=== PATIENT | female | born 1960 | race Caucasian/White ===

== ENCOUNTER → 2018-05-20 09:35 | Outpatient (CLI) | payer OTHER, SELFPAY ==
--- NOTE | 2018-05-20 09:43 | DI.RAD.S_ITS ---
PROCEDURE: XR HAND RT MIN 3V INDICATIONS: fall TECHNIQUE: 3 views of the hand(s) acquired. COMPARISON: None. FINDINGS: Bones: No fractures or dislocations. Carpal bones are normally aligned. No suspicious bony lesions. Soft tissues: No suspicious soft tissue calcifications. IMPRESSION: No displaced fracture seen. If there is continued pain, followup exam or additional imaging such as MRI or CT could be performed for further assessment. Dictated by: Reynold SUAREZ Interpreted: Keiko Zuniga MD on 05/20/2018 at 10:04 Approved by: Keiko Zuniga M.D. on 05/20/2018 at 14:40
== END ==
PROVIDERS: Visit Provider Physician Assistant
DX: M79.644 Pain in right finger(s) (principal); R22.31 Localized swelling, mass and lump, right upper limb
CPT/HCPCS: 73130

== ENCOUNTER → 2018-12-31 08:18 | Outpatient (CLI) | payer OTHER, SELFPAY | PROVIDERS: Visit Provider Physician Assistant | DX: R68.89 Other general symptoms and signs (principal) | CPT/HCPCS: 87400 ==

== ENCOUNTER → 2020-01-15 12:57 | Outpatient (CLI) | payer OTHER, SELFPAY ==
--- NOTE | 2020-01-15 | DI.MRI.S_ITS ---
PROCEDURE: MR KNEE RT WO CON INDICATIONS: UNSPECIFIED INTERNAL DERANGEMENT OF RIGHT KNEE TECHNIQUE: Noncontrast sagittal PD fast spin echo and T2 fast spin echo with fat saturation, sagittal 3-D FLASH with fat saturation; coronal T1 spin echo and PD fast spin echo with fat saturation, and axial PD fast spin echo with fat saturation through the knee. COMPARISON: [facility] Outside Film, RG, KNEE 3VW (RT), 12/04/2019, 19:35. FINDINGS: Image quality: Excellent. Menisci: There is medial extrusion of the medial meniscus. Amorphous high signal intensity within the medial meniscal body is present demonstrating inferior articular surface extension, indicating degenerative tearing. Radial tearing of the posterior horn medial meniscus at the meniscal root ligament insertion site is present. Amorphous high signal intensity within the lateral meniscal body is present, without articular surface extension. Cruciate ligaments: The anterior and posterior cruciate ligaments appear intact. Medial structures: The medial collateral ligament appears intact. Mild T2 signal elevation surrounds the medial collateral ligament. Visualized portions of the pes anserinus tendons appear normal. No abnormal bursal fluid. Lateral structures: The lateral collateral ligament, long and short heads of the biceps femoris tendon appear intact. The popliteus tendon appears normal. Iliotibial band appears normal. Anterior structures: The quadriceps and patellar tendons appear intact. Patellar alignment is normal. No femoral trochlear dysplasia or ventral trochlear prominence. No edema in the infrapatellar fat pad. Bones and cartilage: There is moderate ill-defined T2 signal elevation within the mid and posterior weight-bearing aspects of the medial femoral condyle and medial tibial plateau. Mild tricompartmental periarticular osteophyte formation. The cartilage of the medial and lateral femorotibial compartments, as well as the patellofemoral compartment, appears normal in thickness. Joint space: There is a moderate knee joint effusion and a small Mott's cyst. Normal appearing synovial plicae are incidentally noted. IMPRESSION: 1. Medial meniscal tearing. 2. MCL strain. 3. Knee joint effusion and Mott's cyst. 4. Contusion within the medial femoral condyle and medial tibial plateau. Dictated by: Maki Santiago M.D. on 01/15/2020 at 16:14 Approved by: Maki Santiago M.D. on 01/15/2020 at 16:17
== END ==
PROVIDERS: Referring Provider Orthopaedic Surgery Adult Reconstructive Orthopaedic Surgery; Visit Provider Orthopaedic Surgery Adult Reconstructive Orthopaedic Surgery
DX: S83.241A Other tear of medial meniscus, current injury, right knee, initial encounter (principal); S83.411A Sprain of medial collateral ligament of right knee, initial encounter; S80.01XA Contusion of right knee, initial encounter; M25.461 Effusion, right knee; M71.21 Synovial cyst of popliteal space [Baker], right knee
CPT/HCPCS: 73721

== ENCOUNTER → 2020-12-29 10:37 | Outpatient (CLI) | payer OTHER, SELFPAY ==
--- NOTE | 2020-12-29 | DI.US.S_ITS ---
PROCEDURE: US SOFT TISSUE HEAD AND NECK INDICATIONS: LEFT SUPRACLAVICULAR LUMP TECHNIQUE: Real-time scanning was performed of the neck region of interest, with image documentation. COMPARISON: None. FINDINGS: There are 2 morphologically normal appearing left supraclavicular lymph nodes present, largest measuring 7 mm in maximal short axis. IMPRESSION: Normal appearing prominent left supraclavicular lymph nodes, largest measuring 7 mm. Dictated by: Reynold Wagoner [facility] Interpreted: Vincent Greenwood MD on 12/29/2020 at 13:45 Approved by: Vincent Greenwood M.D. on 12/29/2020 at 16:10
== END ==
PROVIDERS: Referring Provider Nurse Practitioner Family; Visit Provider Nurse Practitioner Family
DX: R22.2 Localized swelling, mass and lump, trunk (principal)
CPT/HCPCS: 76536

== ENCOUNTER → 2021-01-29 08:06 | Outpatient (CLI) | payer OTHER, SELFPAY ==
--- NOTE | 2021-01-29 | DI.MG.S_ITS ---
BILATERAL DIGITAL SCREENING MAMMOGRAM 3D/2D WITH CAD: 01/29/2021 CLINICAL: Routine screening. Baseline exam. No prior exams were available for comparison. There are scattered fibroglandular elements in both breasts. Current study was also evaluated with a Computer Aided Detection (CAD) system. There is a 1 cm oval high density mass with punctate calcifications in the right breast at 10 o'clock middle depth. No other significant masses, calcifications, or other findings are seen in either breast. IMPRESSION: INCOMPLETE: NEEDS ADDITIONAL IMAGING EVALUATION The 1 cm oval high density mass in the right breast is indeterminate. A diagnostic mammogram and ultrasound is recommended. This exam was interpreted at Station ID: [id number]. NOTE: For mammograms, a report in lay terms will be sent to the patient. Approximately 15% of breast malignancies will not be visualized mammographically. In the management of a palpable breast mass, a negative mammogram must not discourage biopsy of a clinically suspicious lesion. Electronically Signed By: Lisa kapoor/angel:01/31/2021 09:06:34 letter sent: Additional Imaging Needed ACR BI-RADS Category 0: Incomplete [id number]
== END ==
PROVIDERS: PCP Nurse Practitioner Family; Referring Provider Nurse Practitioner Family; Visit Provider Nurse Practitioner Family
DX: Z12.31 Encounter for screening mammogram for malignant neoplasm of breast (principal)
CPT/HCPCS: 77063; 77067

== ENCOUNTER → 2021-02-14 09:25 | Outpatient (CLI) | payer OTHER, SELFPAY ==
--- NOTE | 2021-02-14 09:26 | DI.MG.S_ITS ---
UNILATERAL RIGHT DIGITAL DIAGNOSTIC MAMMOGRAM 3D/2D WITH ADDITIONAL VIEWS: 02/14/2021 CLINICAL: Additional evaluation requested from prior study. Comparison is made to exam dated: 01/29/2021 [facility]. There are scattered fibroglandular elements in right breast. There is an oval mass with a circumscribed margin and round calcifications in the right breast at 9 o'clock middle depth. This is confirmed with additional views. No other significant masses or calcifications are seen in the breast. IMPRESSION: INCOMPLETE: NEEDS ADDITIONAL IMAGING EVALUATION The oval mass in the right breast most likely is a cyst or a fibroadenoma but remains indeterminate. An ultrasound is recommended. This was performed immediately following this exam. This exam was interpreted at Station ID: [id number]. NOTE: For mammograms, a report in lay terms will be sent to the patient. Approximately 15% of breast malignancies will not be visualized mammographically. In the management of a palpable breast mass, a negative mammogram must not discourage biopsy of a clinically suspicious lesion. Electronically Signed By: Lisa kapoor/:02/14/2021 10:09:21 ACR BI-RADS Category 0: Incomplete [id number]
--- NOTE | 2021-02-14 09:27 | DI.US.S_ITS ---
LIMITED ULTRASOUND OF RIGHT BREAST: 02/14/2021 CLINICAL: Patient returns today to evaluate a focal asymmetry in the right breast. Comparison is made to exams dated: 02/14/2021 mammogram and 01/29/2021 mammogram - [facility]. Color flow and real-time ultrasound of the right breast were performed. Ahmadi scale images of the real-time examination were reviewed. There is a 1.2 cm x 1.1 cm x 0.6 cm oval mass with an indistinct and circumscribed margin in the right breast at 8 o'clock middle depth 5 cm from the nipple. This oval mass is of mixed echogenicity with an abrupt boundary. This correlates with mammography findings. Color flow imaging demonstrates that there is increased vascularity. No axillary adenopathy IMPRESSION: SUSPICIOUS OF MALIGNANCY The 1.2 cm x 1.1 cm x 0.6 cm oval mass in the right breast most likely is a fibroadenoma and is at a low suspicion for malignancy. Nonetheless, an ultrasound guided biopsy is recommended for confirmation because not all features are classic for a totally benign process. Findings and recommendations were discussed with the patient by the technologist and by Dr. Gordon at time of exam. This exam was interpreted at Station ID: [id number]. Electronically Signed By: Lisa kapoor/:02/14/2021 11:24:40 letter sent: Biopsy Required Ultrasound BI-RADS: 4a Low suspicion for malignancy
== END ==
PROVIDERS: PCP Nurse Practitioner Family; Referring Provider Nurse Practitioner Family; Visit Provider Nurse Practitioner Family
DX: R92.8 Other abnormal and inconclusive findings on diagnostic imaging of breast (principal); N63.13 Unspecified lump in the right breast, lower outer quadrant
CPT/HCPCS: 76642; 77065; G0279

== ENCOUNTER → 2021-03-04 13:07 | Outpatient (CLI) | payer OTHER, SELFPAY ==
--- NOTE | 2021-03-04 | PATH_ITS ---
[facility] Accession Number: [id number] . 01 Material submitted: . breast - R BREAST 8:30 5CMFN . 02 Diagnosis: Right Breast at 8:30, 5 cm from Nipple, Needle Core Biopsy: Benign breast parenchyma with fibroadenomatous and fibrocystic features consisting of focal cystic dilatation of terminal ductules, usual ductal hyperplasia, adenosis, and patchy stromal fibrosis. Negative for atypia or malignancy. V 03/07/2021 1230 Local . 02 Electronically signed: . Tricia Shah MD, Pathologist NPI- [id number] . 01 Gross description: . The specimen is received in formalin, labeled right breast 8:30, 5 cm from nipple, and consists of multiple dooley-yellow fragments of fibroadipose tissue measuring 1.5 x 1.0 x 0.4 cm in aggregate. The specimen is entirely submitted in cassette A1. ([id number]) /[facility] 03/05/2021 1437 Local . 02 Pathologist provided ICD-10: R92.8 . 02 CPT . 611324 Performed at: 01 [facility] [address] [place] [address], [place], [place] [id number] MD Gera Mcfarlane MD Phone: [phone] Performed at: 02 [facility] [address] [place], [place] [id number] MD Sheree Elias MD Phone: [phone]
--- NOTE | 2021-03-04 | DI.MG.S_ITS ---
UNILATERAL RIGHT DIGITAL DIAGNOSTIC MAMMOGRAM POST-NEEDLE BIOPSY: 03/04/2021 CLINICAL: Right breast mass. Comparison is made to exams dated: 02/14/2021 mammogram and 01/29/2021 mammogram - [facility]. There are scattered fibroglandular elements in right breast. Biopsy marker is at site of the lesion. IMPRESSION: POST PROCEDURE MAMMOGRAM FOR MARKER PLACEMENT Biopsy marker was deployed at or just within the lesion. This exam was interpreted at Station ID: [id number]. NOTE: For mammograms, a report in lay terms will be sent to the patient. Approximately 15% of breast malignancies will not be visualized mammographically. In the management of a palpable breast mass, a negative mammogram must not discourage biopsy of a clinically suspicious lesion. Electronically Signed By: Carlos áSnchez M.D. sdh/:03/04/2021 17:20:01 ACR BI-RADS Category Post-procedure mammogram for marker placement
--- NOTE | 2021-03-04 | DI.US.S_ITS ---
ULTRASOUND GUIDED BIOPSY RIGHT BREAST USING VACUUM DEVICE WITH MARKING DEVICE INSERTED AND POST MAMMOGRAPHIC AND ULTRASOUND IMAGIN03/04/2021 CLINICAL: Right breast mass. PATIENT CONSENT: Risks (minor bleeding, infection, vasovagal reaction and repeat procedure), benefits and alternatives were explained to the patient and written informed consent was obtained. Correlation is made to exams dated: 03/04/2021 mammogram, 02/14/2021 ultrasound, 02/14/2021 mammogram, and 01/29/2021 mammogram - [facility]. An ultrasound guided biopsy using real-time ultrasound was performed for the concerning circumscribed round solid mass located in the right breast at 9 o'clock middle depth 5 cm from the nipple. This was described on the previous mammography and ultrasound reports. The skin was prepped in the usual manner. Local anesthetic was administered to the access site. A skin mitch was made in the breast. The abnormality was approached from the lateral aspect. A 13 gauge biopsy needle was placed adjacent to the abnormality under ultrasound guidance. Once the needle was documented to be in the correct location, four specimens were obtained using the Mammotome biopsy system. The patient received additional local anesthetic during the procedure. A Vision marker clip was inserted into the biopsy cavity. A skin closure strip and a sterile dressing were applied to the access site. Post procedure mammographic and ultrasound imaging demonstrates the location device at the targeted area and partial removal of the abnormality. The specimens were sent to the laboratory for pathological analysis. IMPRESSION: ULTRASOUND GUIDED BIOPSY BENIGN Ultrasound guided biopsy of the solid mass in the right breast at 9 o'clock middle depth was successful. Pathology demonstrate Benign breast parenchyma with fibroadenomatous and fibrocystic features.... Pathology results are concordant with imaging findings. Return to screening mammogram is recommended. This exam was interpreted at Station ID: [id number]. Carlos Moore M.D. [facility]/:03/09/2021 11:58:42
== END ==
PROVIDERS: PCP Nurse Practitioner Family; Referring Provider Nurse Practitioner Family; Visit Provider Nurse Practitioner Family
DX: N60.21 Fibroadenosis of right breast (principal); N60.31 Fibrosclerosis of right breast
CPT/HCPCS: 19083; 77065

== ENCOUNTER → 2021-07-16 18:27 | Outpatient (CLI) | payer OTHER, SELFPAY ==
[2021-07-16 19:00] LABS: COVID19 -Nasal RAPID Negative (Negative)
== END ==
PROVIDERS: PCP Nurse Practitioner Family; Visit Provider Physician Assistant
DX: Z20.822 Contact with and (suspected) exposure to COVID-19 (principal)
CPT/HCPCS: 87635

== ENCOUNTER → 2021-11-19 14:45 | Outpatient (CLI) | payer OTHER, SELFPAY ==
[2021-11-19 15:30] LABS: COVID19 -Nasal RAPID Negative (Negative)
== END ==
PROVIDERS: PCP Nurse Practitioner Family; Visit Provider Physician Assistant
DX: Z20.822 Contact with and (suspected) exposure to COVID-19 (principal)
CPT/HCPCS: 87635

== ENCOUNTER → 2024-04-30 12:58 | Outpatient (CLI) | payer OTHER, SELFPAY ==
--- NOTE | 2024-04-30 13:00 | DI.MG.S_ITS ---
BILATERAL DIGITAL SCREENING MAMMOGRAM 3D/2D WITH CAD: 04/30/2024 CLINICAL: Routine screening. Comparison is made to exam dated: 01/29/2021 mammogram - [facility]. There are scattered areas of fibroglandular density in both breasts (category b / 25%-50% glandular tissue). Current study was also evaluated with a Computer Aided Detection (CAD) system. There is a benign mass in the right breast. There also is a biopsy clip in the right breast. No significant masses, calcifications, or other findings are seen in either breast. There has been no significant interval change. IMPRESSION: BENIGN There is no mammographic evidence of malignancy. A 1 year screening mammogram is recommended. Based on the Tyrer Cuzick model (a risk assessment model) the patient's lifetime risk is 6.7% and her 10 year risk is 2.8%. According to the ACR, ACS, and NCCN guidelines, an annual breast MRI exam along with mammogram is recommended if the patient's lifetime risk is 20% or greater. This exam was interpreted at Station ID: [id number]. NOTE: For mammograms, a report in lay terms will be sent to the patient. Approximately 15% of breast malignancies will not be visualized mammographically. In the management of a palpable breast mass, a negative mammogram must not discourage biopsy of a clinically suspicious lesion. Electronically Signed By: Lisa kapoor/angel:04/30/2024 14:35:26 letter sent: Normal Exam ACR BI-RADS Category 2: Benign Finding(s) 3342F
== END ==
LOC: MAMMO 12:59
PROVIDERS: PCP Internal Medicine; Referring Provider Internal Medicine; Visit Provider Internal Medicine
DX: Z12.31 Encounter for screening mammogram for malignant neoplasm of breast (principal); R92.323 Mammographic fibroglandular density, bilateral breasts
CPT/HCPCS: 77063; 77067